=== PATIENT | female | born 1965 | race Caucasian/White ===

== ENCOUNTER 2025-02-06 10:56 | Emergency (ER) | payer BC ==
[2025-02-06] MEDS ORDERED: Ketorolac Tromethamine 30 MG (1 mL) VIAL ONE (12:34)
[2025-02-06 12:38] LABS: #Basophils 0.07 10x3/uL (0.0-0.2); #Eosinophils 0.11 10x3/uL (0.0-0.5); #Monocytes 0.57 10x3/uL (0.0-1.1); #Neutrophils 5.85 10x3/uL (1.5-8.4); %Basophils 0.8 % (0.0-2.0); %Eosinophils 1.3 % (0.0-6.0); %Lymphocytes 19.6 % (18.0-47.0); %Monocytes 6.9 % (0.0-10.0); %Neutrophils 70.9 % (40.0-75.0); Hematocrit 41.7 % (34.9-44.5); Hemoglobin 14.0 g/dL (12.0-15.5); Mean Corpuscular Hemoglobin 28.2 pg (27.0-33.0); Mean Corpuscular Volume 84.1 fL (81.6-98.3); Platelet Count 397 10x3/uL (150-450); Red Blood Cell (RBC) Count 4.96 10x6/uL (3.90-5.03); White Blood Cell (WBC) Count 8.26 10x3/uL (3.5-10.5)
[2025-02-06 12:53] LABS: ALT (SGPT) 24 U/L (Less than 34); AST (SGOT) 25 U/L (11-34); Albumin 3.9 g/dL (3.1-4.5); Alkaline Phosphatase 76 U/L (40-110); Anion Gap 14 mmol/L (10-20); BUN (Urea Nitrogen) 14 mg/dL (9.8-20.1); Bilirubin, Total 0.3 mg/dL (0.3-1.2); Calc. Creatinine Clearance 0 mL/min (70-130); Calcium 9.2 mg/dL (7.8-10.44); Carbon Dioxide 21 mmol/L (22-29); Chloride 107 mmol/L (98-107); Globulin 3.5 g/dL (2.4-3.5); Glucose 153 mg/dL (70-105); Potassium 4.0 mmol/L (3.5-5.1); Sodium 138 mmol/L (136-145)
[2025-02-06 13:01] LABS: Glucose, Urine (Dipstick) Normal (Negative); Leukocyte 500 (Negative); Protein, Urine (Dipstick) 30 mg/dl (Neg-Trace); Specific Gravity, Urine 1.025 (1.005-1.030)
[2025-02-06 13:13] LABS: Bacteria/HPF 1+ HPF (None Seen); CAUTI Indications for Culture Pelvic or flank pain; Mucous/LPF 1+ LPF (<2+); RBC/HPF 0-3 HPF (0-3)
[2025-02-06 13:15] LABS: Urine Culture Reflex No No
[2025-02-06] MEDS ORDERED: Sulfameth/Trimethoprim DS 800-160mg TAB ONE (13:32)
== END 2025-02-06 13:55 | disposition home or self-care (01) ==
LOC: CSHERS 10:56 → EEVIPCON 10:56 → CSHERS 13:55
DX: M48.061 Spinal stenosis, lumbar region without neurogenic claudication (principal); M54.42 Lumbago with sciatica, left side; N39.0 Urinary tract infection, site not specified
CPT/HCPCS: 72148; 80053; 81001; 85025; 86140; 96374; 96375; J1885; J2919